=== PATIENT | male | born 1950 | race Caucasian/White ===

== ENCOUNTER 2018-04-25 16:32 | Emergency (ER) | payer OTHER ==
[~2018-04-25] VITALS: Ht 185.4 cm; Wt 106.1 kg
[2018-04-25] MEDS ORDERED: ATACAND4 MG (17:15)
[2018-04-25] MEDS ORDERED: EC-NAPROSYN375 MG (17:16)
== END 2018-04-25 21:15 | disposition home or self-care (01) ==
LOC: ER 16:32
DX: M54.5 Low back pain (principal); M25.561 Pain in right knee; M25.521 Pain in right elbow

== ENCOUNTER 2018-04-27 13:45 | Inpatient (IN) | payer OTHER ==
[~2018-04-27] VITALS: Ht 182.9 cm; Wt 200.0 kg
[~2018-04-27 13:45] MED LIST: ATACAND4 MG; EC-NAPROSYN375 MG
== END 2018-05-19 20:16 | DRG 485 ==
LOC: ER 13:45 → MEDI 20:22 → SURH 20:22
PROVIDERS: ADMIT Orthopaedic Surgery
PROC: BQ37ZZZ Magnetic Resonance Imaging (MRI) of Right Knee (ICD-10-PCS; 2018-04-27)
PROC: 0SBC4ZZ Excision of Right Knee Joint, Percutaneous Endoscopic Approach (ICD-10-PCS; 2018-04-28)
PROC: 0SBC4ZZ Excision of Right Knee Joint, Percutaneous Endoscopic Approach (ICD-10-PCS; 2018-04-28)
PROC: B246ZZZ Ultrasonography of Right and Left Heart (ICD-10-PCS; 2018-04-28)
PROC: 0SBC4ZZ Excision of Right Knee Joint, Percutaneous Endoscopic Approach (ICD-10-PCS; principal; 2018-04-28 16:00)
PROC: 009U3ZZ Drainage of Spinal Canal, Percutaneous Approach (ICD-10-PCS; 2018-05-01)
PROC: BW21ZZZ Computerized Tomography (CT Scan) of Abdomen and Pelvis (ICD-10-PCS; 2018-05-03)
PROC: BR29ZZZ Computerized Tomography (CT Scan) of Lumbar Spine (ICD-10-PCS; 2018-05-12)
DX: M00.061 Staphylococcal arthritis, right knee (principal); A41.01 Sepsis due to Methicillin susceptible Staphylococcus aureus; G06.1 Intraspinal abscess and granuloma; R65.10 Systemic inflammatory response syndrome (SIRS) of non-infectious origin without acute organ dysfunction; M17.11 Unilateral primary osteoarthritis, right knee; S83.271A Complex tear of lateral meniscus, current injury, right knee, initial encounter; S83.231A Complex tear of medial meniscus, current injury, right knee, initial encounter; B95.61 Methicillin susceptible Staphylococcus aureus infection as the cause of diseases classified elsewhere; I10 Essential (primary) hypertension; E74.39 Other disorders of intestinal carbohydrate absorption; R09.02 Hypoxemia; M94.261 Chondromalacia, right knee; K59.09 Other constipation; D72.828 Other elevated white blood cell count; J00 Acute nasopharyngitis [common cold]
CPT/HCPCS: 72149; 73721

== ENCOUNTER 2018-06-10 13:48 | Outpatient (CLI) | payer OTHER | END 2018-06-10 13:50 | disposition home or self-care (01) | LOC: MRI 13:48 | DX: M54.6 Pain in thoracic spine (principal) | CPT/HCPCS: 72146 ==

== ENCOUNTER 2018-07-08 13:54 | Outpatient (CLI) | payer OTHER | END 2018-07-08 14:10 | disposition home or self-care (01) | LOC: MRI 13:54 | DX: M46.26 Osteomyelitis of vertebra, lumbar region (principal) | CPT/HCPCS: 72148 ==

== ENCOUNTER → 2019-03-09 | Outpatient (CLI) | payer OTHER | END | disposition home or self-care (01) | LOC: RX STUDY 08:45 | DX: D50.8 Other iron deficiency anemias (principal); K44.9 Diaphragmatic hernia without obstruction or gangrene; K31.89 Other diseases of stomach and duodenum; K57.30 Diverticulosis of large intestine without perforation or abscess without bleeding; K64.0 First degree hemorrhoids; K29.70 Gastritis, unspecified, without bleeding; K21.9 Gastro-esophageal reflux disease without esophagitis; R12 Heartburn; K20.8 Other esophagitis; K31.7 Polyp of stomach and duodenum; K59.09 Other constipation ==